=== PATIENT | female | born 1980 | race Caucasian/White ===

== ENCOUNTER 2020-02-11 13:00 | Emergency (ER) | payer OTHER, MEDICAID ==
[~2020-02-11] VITALS: Ht 167.6 cm; Wt 59.0 kg
[~2020-02-11 13:00] MED LIST: ACCUNEB SO1.25 MG/1 INH; ADVAIR HFA 230M12 GM INH; BUSPIRONE HCL10 MG PO; BUTALB-APAP-CA1 EACH PO; HYDROCODONE-AP1 EAC6 PO; NEURONTIN600 MG PO; PAXIL10 MG PO; PERCOCET PO; XANAX 0.5 MG0.5 MG PO
[2020-02-11] MEDS ORDERED: KEFLEX500 M1 PO (13:13)
[2020-02-11 13:17] VITALS: BP 130/87
[2020-02-11] MEDS ORDERED: BACTRIM DS TAB1 EACH PO (13:22)
[2020-02-11] MEDS ORDERED: CENTANY30 GM TOP (13:22)
== END 2020-02-11 13:31 | disposition home or self-care (01) ==
LOC: M.ERS 13:00
DX: S50.862A Insect bite (nonvenomous) of left forearm, initial encounter (principal); L03.114 Cellulitis of left upper limb; J45.909 Unspecified asthma, uncomplicated; F17.210 Nicotine dependence, cigarettes, uncomplicated; Z88.6 Allergy status to analgesic agent; W57.XXXA Bitten or stung by nonvenomous insect and other nonvenomous arthropods, initial encounter; Y93.89 Activity, other specified; Y92.89 Other specified places as the place of occurrence of the external cause; Y99.8 Other external cause status